=== PATIENT | female | born 1930 | race Caucasian/White ===

== ENCOUNTER 2020-09-25 09:08 | Outpatient (CLI) | payer OTHER ==
[~2020-09-25 09:08] MED LIST: AMLODIPINE BES2.5 MG; ASA81 MG; CARVEDILOL12.5 MG; CARVEDILOL12.5 MG PO; CATAFLAM50 MG PO; CIPRO500 MG PO; COLACE100 MG; COZAAR50 MG; CRESTOR10 MG; HYZAAR 50/12.51 TAB; ISOSORBIDE MONO60 MG PO; LASIX20 MG; LASIX20 MG PO; LEVOTHYROXINE75 MCG PO; LISINOPRIL10 MG PO; PAXIL CR25 MG; Procardia Xl 30MG TA PO; SYNTHROID50 MCG; TRAMADOL HCL-AP1 TAB
== END 2020-09-25 09:19 | disposition home or self-care (01) ==
LOC: NUCLEAR 09:08
PROVIDERS: ATTEND Internal Medicine Cardiovascular Disease
DX: I42.8 Other cardiomyopathies (principal); I50.1 Left ventricular failure, unspecified